=== PATIENT | female | born 1950 | race Caucasian/White ===

== ENCOUNTER 2024-02-18 08:00 | Outpatient (CLI) | payer OTHER ==
[~2024-02-18] VITALS: Ht 157.5 cm; Wt 86.2 kg
== END 2024-02-18 15:24 | disposition home or self-care (01) ==
LOC: SLB 08:00 → EDSTATUS 02-23 07:30
PROVIDERS: ATTEND Colon & Rectal Surgery
DX: K43.0 Incisional hernia with obstruction, without gangrene (principal)
CPT/HCPCS: 87081